=== PATIENT | male | born 1955 | race African-American/Black ===

== ENCOUNTER 2018-11-12 10:43 | Inpatient (IN) | payer MEDICARE ==
[2018-11-12] VITALS (7 sets, daily range): BP systolic 110–135; BP diastolic 62–76; BMI 26.4
[~2018-11-12] VITALS: Ht 185.4 cm; Wt 89.1 kg
--- NOTE | ~2018-11-12 | CN ---
PATIENT NAME:AMRITA SHAH MEDICAL RECORD: [id number] : 55 LOCATION:[facility].2126 ADMIT DATE: 11/12/18 ACCOUNT: [id number] CONSULTING PHYSICIAN: SANTY LANGLEY MD REFERRING PHYSICIAN: DALTON FLOOD MD DATE OF CONSULTATION: 11/13/2018 CONSULT REQUESTING PHYSICIAN: Dr. Dalton Flood. REASON FOR CONSULTATION: Bilateral lower lobe aspiration pneumonia, acute hypoxic respiratory failure. HISTORY OF PRESENT ILLNESS: Mr. Shah is a 63-year-old -[place] gentleman, who is a penitentiary resident. The patient was not feeling well and he vomited, full mouth, witnessed aspiration when he was throwing up. The patient was brought into the local hospital and found out the patient is hypoxic and he was started on Zosyn. Now, he is feeling a bit better and also the patient has hepatic encephalopathy, transferred over here for advanced care. He is seen by Dr. Caceres regarding his cirrhosis of liver and hepatic encephalopathy. REVIEW OF SYSTEMS: Is in history of present illness. PAST MEDICAL HISTORY: 1. Cirrhosis of liver. 2. Diabetes mellitus. 3. History of hepatitis. 4. Seizure disorder. 5. Gastroesophageal reflux disease. 6. Dementia. 7. Depression. ALLERGIES: No known drug allergy. MEDICATIONS: Babycare is reviewed. PERSONAL AND SOCIAL HISTORY: The patient is a nonsmoker. He was a heavy drinker in the past. FAMILY HISTORY: Noncontributory. PHYSICAL EXAMINATION: GENERAL: Now, the patient is lying comfortably in bed. He is not in acute distress. VITAL SIGNS: The blood pressure is 118/63, pulse is 84, respiration is 16, temperature is 98.1, and SPO2 is 94% on 3 liters nasal cannula. HEENT: Conjunctivae are pink. Sclerae nonicteric. NECK: Supple, no JVD. CHEST: There are bilateral crackles. No wheezing. HEART: Rhythm regular, normal sound, no murmur. ABDOMEN: Soft, bowel sounds present. No hepatosplenomegaly. RECTAL: Deferred. EXTREMITIES: No cyanosis, no clubbing, no pedal edema. CENTRAL NERVOUS SYSTEM: The patient is awake and alert, but he is confused. CONSULT REPORT [id number] AMRITA SHAH LABORATORY DATA: CBC: WBC 8.2, hemoglobin 10.9, hematocrit 33.7, the platelet count is 91. Chemistry: Sodium 145, potassium is 5, chloride 114, bicarbonate is 21.9, BUN is 27, creatinine 0.9. ABG: The pH is 7.31, pCO2 is 36.6, pO2 of 67, bicarb is 18.5. IMPRESSION: 1. Acute hypoxic respiratory failure. 2. Bilateral aspiration pneumonia. 3. Nausea, vomiting, the etiology not clear. 4. Hepatic encephalopathy. 5. Dementia. 6. Cirrhosis of liver. 7. Gastroesophageal reflux disease. 8. History of dysphagia. 9. History of seizure disorder. RECOMMENDATION: 1. Continue vancomycin and Zosyn. 2. Mucinex. 3. Supplemental oxygen. 4. Follow up labs and chest radiograph. GI has been consulted. Dr. Flood, thank you for involving me in the care of Mr. Shah. TRANSINT:[id number] Voice Confirmation ID: [id number] DOCUMENT ID: [id number] SANTY LANGLEY MD at 1507 CC: [id number] DICTATION DATE: 11/13/18 1348 ORNAMENT STITCHER: 11/13/18 1826 DIS IN 11/22/18 [id number] [place] [address]
--- NOTE | ~2018-11-12 | MORECARE ---
CASE MANAGEMENT DISCHARGE SUMMARY PATIENT: AMRITA MASSEY UNIT: [id number] ADM DATE: 11/12/18 AGE: 63 : 55 SEX: M ROOM/BED: D.2126 AUTHOR: ÁNGEL COLES PHYSICIAN: REFERRING PHYSICIAN: NANO CORBETT MD DATE OF SERVICE: 11/21/18 Discharge Plan Patient Name: AMRITA MASSEY Facility: [facility]:[place] : 1955 Planned Disposition: Anticipated Discharge Date: 11/21/18 Discharge Date: Expected LOS: 9 Initial Reviewer: [id number] Initial Review Date: 11/21/2018 Generated: 11/21/18 11:51 am Comments DCP- Discharge Planning Updated by [id number]: Deisi Rosa on 11/21/18 9:[address] Patient Name: AMRITA MASSEY Admission Status: ER Accout number: [id number] Admission Date: 11-12-2018 : 1955 Admission Diagnosis:PNEUMONITIS DUE TO INHALATION OF FOOD AND VOMIT Attending: NANO TORRES Current LOS: 9 Anticipated DC Date: 11-21-2018 Planned Disposition: Primary Insurance: MEDICARE A & B Discharge Planning Comments: CM SPOKE WITH NURSE ABOUT DISCHARGE PLANNING/NEEDS. SHE STATES SHE SPOKE TO THE DAUGHTER TODAY AND STATES SHE WOULD TRANSPORT HIM BACK TO THE NURSING FACILITY HE LIVES AT. CM WILL FOLLOW AND ASSIST NEEDED WITH DC PLANNING/NEEDS. IM SERVED, Equity Research Analyst: Deisi Rosa Appended by Deisi Rosa on 11/21/2018 10:51 JALOUSIE INSTALLER: RN WILL CALL REPORT TO THE NURSING FACILITY AND SEND APPROPRIATE PAPERWORK WITH HIM. Coverage Notice Reviewer: [id number] - Deisi Rosa Notice Issued Date-Time: 11/21/2018 10:42 Notice Type: IM Discharge Notice Notice Delivered To: Patient Relationship to Patient: Self Countersinker Name: Delivery Method: HAND - Hand Delivered Ana Days: Prior Verbal Notification: Recipient Understood Notice: Yes Recipient Signature: Med Rec Note Co-signed by Attending: Coverage Notice Comment: IM SERVED. PATIENT VERBALIZED UNDERSTANDING. WILL BE DC'D BACK TO NURSING FACILITY TODAY. Patient Name: AMRITA MASSEY Page [phone] at 1051 All edits/amendments must be made on the electronic document DICTATION DATE: 11/21/181050 COASTAL AND ESTUARY SPECIALIST: STEVEN 11/21/18 105 RPT#: [id number] DC DATE: STATUS: ADM IN [facility] [address] [place] [address] END OF REPORT
--- NOTE | ~2018-11-12 | MORECARE ---
CASE MANAGEMENT DISCHARGE SUMMARY PATIENT: AMRITA MASSEY UNIT: [id number] ADM DATE: 11/12/18 AGE: 63 : 55 SEX: M ROOM/BED: D.2126 AUTHOR: ÁNGEL COLES PHYSICIAN: REFERRING PHYSICIAN: NANO CORBETT MD DATE OF SERVICE: 11/21/18 Discharge Plan Patient Name: AMRITA MASSEY Facility: [facility]:[place] : 1955 Planned Disposition: Anticipated Discharge Date: 11/21/18 Discharge Date: Expected LOS: 9 Initial Reviewer: [id number] Initial Review Date: 11/21/2018 Generated: 11/21/18 4:15 pm Comments DCP- Discharge Planning Updated by [email or web address]: Deisi Rosa on 11/21/18 9:[address] Patient Name: AMRITA MASSEY Admission Status: ER Accout number: [id number] Admission Date: 11-12-2018 : 1955 Admission Diagnosis:PNEUMONITIS DUE TO INHALATION OF FOOD AND VOMIT Attending: NANO TORRES Current LOS: 9 Anticipated DC Date: 11-21-2018 Planned Disposition: Primary Insurance: MEDICARE A & B Discharge Planning Comments: CM SPOKE WITH NURSE ABOUT DISCHARGE PLANNING/NEEDS. SHE STATES SHE SPOKE TO THE DAUGHTER TODAY AND STATES SHE WOULD TRANSPORT HIM BACK TO THE NURSING FACILITY HE LIVES AT. CM WILL FOLLOW AND ASSIST NEEDED WITH DC PLANNING/NEEDS. IM SERVED, Tombstone Erector: Deisi Rosa Appended by Deisi Rosa on 11/21/2018 10:51 RETORT OPERATOR: RN WILL CALL REPORT TO THE NURSING FACILITY AND SEND APPROPRIATE PAPERWORK WITH HIM. Coverage Notice Reviewer: [id number] - Deisi Rosa Notice Issued Date-Time: 11/21/2018 10:42 Notice Type: IM Discharge Notice Notice Delivered To: Patient Relationship to Patient: Self [place] [employer] Dental Lab Technician Name: Delivery Method: HAND - Hand Delivered Ana Days: Prior Verbal Notification: Recipient Understood Notice: Yes Recipient Signature: Med Rec Note Co-signed by Attending: Coverage Notice Comment: IM SERVED. PATIENT VERBALIZED UNDERSTANDING. WILL BE DC'D BACK TO NURSING FACILITY TODAY. Last DP export: 11/21/18 9:51 Patient Name: AMRITA MASSEY Page [phone] at 1516 All edits/amendments must be made on the electronic document DICTATION DATE: 11/21/181514 AIR FORCE SENIOR OFFICER: STEVEN 11/21/181514 RPT#: [id number] DC DATE: STATUS: ADM IN [facility] [address] [place] [address] END OF REPORT
--- NOTE | ~2018-11-12 | MORECARE ---
CASE MANAGEMENT DISCHARGE SUMMARY PATIENT: AMRITA MASSEY UNIT: [id number] ADM DATE: 11/12/18 AGE: 63 : 55 SEX: M ROOM/BED: D.2126 AUTHOR: SHARYNDOC PHYSICIAN: REFERRING PHYSICIAN: NANO CORBETT MD DATE OF SERVICE: 11/22/18 Discharge Plan Patient Name: AMRITA MASSEY Facility: [facility]:[place] : 1955 Planned Disposition: Nursing Facility JENNIFER Cert Anticipated Discharge Date: 11/22/18 Discharge Date: 11/22/2018 Expected LOS: 10 Initial Reviewer: [id number] Initial Review Date: 11/21/2018 Generated: 11/22/18 12:14 pm Comments DCP- Discharge Planning Updated by [email or web address]: Milo Sneed on 11/22/18 10:[address] Patient Name: AMRITA MASSEY Encounter No: [id number] : 1955 Primary Insurance: MEDICARE A & B Anticipated DC Date: 11-22-2018 Planned Disposition: Nursing Facility JENNIFER Cert External Planned Provider: [facility], LONG TERM CARE MEDICAID BED DCP follow-up note: CM RECEIVED DISCHARGE ORDER, CALLED AND SPOKE TO NURSE ANDRADE OF [facility], , WHO REPORTS THEY WILL NEED NURSE REPORT AGAIN TODAY, CALLED TO [facility]. CM NOTIFIED BEDSIDE NURSE. CM FAXED DISCHARGE INFORMATION TO [facility], . CM SPOKE TO KARSON AT [facility], ADVISED OF DISCHARGE TODAY; WU INFORMED CM HE WILL NOTIFY [facility] BRANCH OF [facility] SO THAT RE ADMIT CAN TAKE PLACE AFTER PT'S ARRIVAL AT [facility] TODAY. PT TO TRANSPORT VIA AMBULANCE BACK, TO [facility]. Milo Sneed, CASE HARMEET DCP- Discharge Planning Updated by [id number]: Mare Tidwell on 11/21/18 2:[address] LATE ENTRY 6341- 1496 TIRE CENTER MANAGER TRANSFERED A TELEPHONE CALL FROM VINEET CROWE, PT'S DAUGHTER. SHE HAD BEEN NOTIFIED BY THE FACILITY THAT SHE WOULD HAVE TO SIGN THE PAPERWORK BEFORE THE PATIENT COULD BE TRANSFERED BACK TO FACILITY. SHE DID NOT UNDERSTAND WHAT PAPERWORK. NO DOCUMENTATION REGARDING FACILITY. NAME AND TELEPHONE NUMBER OBTAINED FROM THE DAUGHTER. THE DAUGHTER IS OUT OF TOWN. TC TO [facility] AT [phone]. SPOKE WITH DACIA. THE PATIENT'S FAMILY MUST SIGN ADMISSION PAPERWORK. CM REVIEWED THE PATIENT'S HARDCOPY CHART AND FOUND HOSPICE PAPERWORK NOT RELATED TO THIS PATIENT. AFTER SOME DISCUSSION FOUND THE PATIENT HAD BEEN ON HOSPICE CARE WITH [facility]. ON ADMISSION TO THE HOSPITAL THE HOSPICE HAD APPARENTLY BEEN REVOKED. THE PATIENT DOES NOT HAVE CAPACITY TO SIGN THE PAERWORK. CM REQUEST FOR THE ENTERPRISE APPLICATIONS MANAGER TO CALL CM. THE DTR CALLED AGAIN. CM ADVISED I WOULD CALL KAHLIL BACK WHEN I HAD CLARIFIED THE ISSUES. 1453 RECEIVED TELEPHONE CALL FROM BRANDAN, THE [place], AT HOME [facility]. SHE STATES THE PATIENT HAS DECLINED MENTALLY AND PHYSICALLY OVER THE LAST MONTH. HE WAS ON HOSPICE WITH [facility]. THE HOSPICE WAS REVOKED WHEN HE WAS ADMITTED TO THE FACILITY. THE FAMILY MUST COME BACK IN TO ADMIT PATIENT BACK INTO HOSPICE. SHE ALSO STATED THE PATIENT SHOULD HAVE AMBULANCE TRANSPORT. THE RIDE TO FACILITY IS OVER 2 HRS AND HE WOULD LIKELY NOT TOLERATE CAR TRANSPORT. 1458 TC TO [facility]. RECEIVED CB FROM KIRAN, THE SCARIFIER OPERATOR NURSE. SHE CONFIRMS [facility] IS THE HOSPICE PROVIDER. ADVISED HER OF DISCHARGE LIKELY ON THURSDAY. THEY WILL F/U WITH THE FAMILY. TC TO [facility] TO ADVISE OF PROCESS TO HAVE PATIENT READMITTED. CM EXPLAINED THE ISSUES. I PROVDED THE PHONE NUMBER TO CALL HOSPICE TO ARRANGE FOR COMPLETION OF THE PAPERWORK. SHE AGREED TO CALL TODAY. DCP- Discharge Planning Updated by [id number]: Deisi Rosa on 11/21/18 9:[address] Patient Name: AMRITA MASSEY Admission Status: ER Accout number: [id number] Admission Date: 11-12-2018 : 1955 Admission Diagnosis:PNEUMONITIS DUE TO INHALATION OF FOOD AND VOMIT Attending: NANO TORRES Current LOS: 9 Anticipated DC Date: 11-21-2018 Planned Disposition: Primary Insurance: MEDICARE A & B Discharge Planning Comments: CM SPOKE WITH NURSE ABOUT DISCHARGE PLANNING/NEEDS. SHE STATES SHE SPOKE TO THE DAUGHTER TODAY AND STATES SHE WOULD TRANSPORT HIM BACK TO THE NURSING FACILITY HE LIVES AT. CM WILL FOLLOW AND ASSIST NEEDED WITH DC PLANNING/NEEDS. IM SERVED, Account Review Specialist: Deisi Rosa Appended by Deisi Rosa on 11/21/2018 10:51 BED CONTROL SPECIALIST: RN WILL CALL REPORT TO THE NURSING FACILITY AND SEND APPROPRIATE PAPERWORK WITH HIM. Coverage Notice Reviewer: [id number] - Deisi Rosa Notice Issued Date-Time: 11/21/2018 10:42 Notice Type: IM Discharge Notice Notice Delivered To: Patient Relationship to Patient: Self Predictive Maintenance Technician Name: Delivery Method: HAND - Hand Delivered Ana Days: Prior Verbal Notification: Recipient Understood Notice: Yes Recipient Signature: Med Rec Note Co-signed by Attending: Coverage Notice Comment: IM SERVED. PATIENT VERBALIZED UNDERSTANDING. WILL BE DC'D BACK TO NURSING FACILITY TODAY. Last DP export: 11/22/18 10:07 Patient Name: AMRITA MASSEY Page 48882 at 1114 All edits/amendments must be made on the electronic document DICTATION DATE: 11/22/18 111 TELEVISION SCRIPT WRITER: STEVEN 11/22/18 1114 RPT#: [id number] DC DATE:11/22/18 STATUS: DIS IN [facility] [address] [place] [address] END OF REPORT
--- NOTE | ~2018-11-12 | MORECARE ---
CASE MANAGEMENT DISCHARGE SUMMARY PATIENT: AMRITA MASSEY UNIT: [id number] ADM DATE: 11/12/18 AGE: 63 : 55 SEX: M ROOM/BED: D.2126 AUTHOR: SHARYNDOC PHYSICIAN: REFERRING PHYSICIAN: NANO CORBETT MD DATE OF SERVICE: 11/21/18 Discharge Plan Patient Name: AMRITA MASSEY Facility: [facility]:[place] : 1955 Planned Disposition: Anticipated Discharge Date: 11/21/18 Discharge Date: Expected LOS: 9 Initial Reviewer: [id number] Initial Review Date: 11/21/2018 Generated: 11/21/18 4:48 pm Comments DCP- Discharge Planning Updated by [id number]: Mare Tidwell on 11/21/18 2:[address] LATE ENTRY 6459- 4865 SPORTS STATISTICIAN TRANSFERED A TELEPHONE CALL FROM VINEET CROWE, PT'S DAUGHTER. SHE HAD BEEN NOTIFIED BY THE FACILITY THAT SHE WOULD HAVE TO SIGN THE PAPERWORK BEFORE THE PATIENT COULD BE TRANSFERED BACK TO FACILITY. SHE DID NOT UNDERSTAND WHAT PAPERWORK. NO DOCUMENTATION REGARDING FACILITY. NAME AND TELEPHONE NUMBER OBTAINED FROM THE DAUGHTER. THE DAUGHTER IS OUT OF TOWN. TC TO [facility] AT [phone]. SPOKE WITH DACIA. THE PATIENT'S FAMILY MUST SIGN ADMISSION PAPERWORK. CM REVIEWED THE PATIENT'S HARDCOPY CHART AND FOUND HOSPICE PAPERWORK NOT RELATED TO THIS PATIENT. AFTER SOME DISCUSSION FOUND THE PATIENT HAD BEEN ON HOSPICE CARE WITH [facility]. ON ADMISSION TO THE HOSPITAL THE HOSPICE HAD APPARENTLY BEEN REVOKED. THE PATIENT DOES NOT HAVE CAPACITY TO SIGN THE PAERWORK. CM REQUEST FOR THE BRICK PAVING CHECKER TO CALL CM. THE DTR CALLED AGAIN. CM ADVISED I WOULD CALL KAHLIL BACK WHEN I HAD CLARIFIED THE ISSUES. 4006 RECEIVED TELEPHONE CALL FROM DELROY GIPSON, [facility]. SHE STATES THE PATIENT HAS DECLINED MENTALLY AND PHYSICALLY OVER THE LAST MONTH. HE WAS ON HOSPICE WITH [facility]. THE HOSPICE WAS REVOKED WHEN HE WAS ADMITTED TO THE FACILITY. THE FAMILY MUST COME BACK IN TO ADMIT PATIENT BACK INTO HOSPICE. SHE ALSO STATED THE PATIENT SHOULD HAVE AMBULANCE TRANSPORT. THE RIDE TO FACILITY IS OVER 2 HRS AND HE WOULD LIKELY NOT TOLERATE CAR TRANSPORT. 1823 TC TO [facility]. RECEIVED CB FROM KIRAN, THE HOT DOG VENDOR NURSE. SHE CONFIRMS [facility] IS THE HOSPICE PROVIDER. ADVISED HER OF DISCHARGE LIKELY ON THURSDAY. THEY WILL F/U WITH THE FAMILY. TC TO [facility] TO ADVISE OF PROCESS TO HAVE PATIENT READMITTED. CM EXPLAINED THE ISSUES. I PROVDED THE PHONE NUMBER TO CALL HOSPICE TO ARRANGE FOR COMPLETION OF THE PAPERWORK. SHE AGREED TO CALL TODAY. DCP- Discharge Planning Updated by [email or web address]: Deisi Rosa on 11/21/18 9:[address] Patient Name: AMRITA MASSEY Admission Status: ER Accout number: [id number] Admission Date: 11-12-2018 : 1955 Admission Diagnosis:PNEUMONITIS DUE TO INHALATION OF FOOD AND VOMIT Attending: NANO TORRES Current LOS: 9 Anticipated DC Date: 11-21-2018 Planned Disposition: Primary Insurance: MEDICARE A & B Discharge Planning Comments: CM SPOKE WITH NURSE ABOUT DISCHARGE PLANNING/NEEDS. SHE STATES SHE SPOKE TO THE DAUGHTER TODAY AND STATES SHE WOULD TRANSPORT HIM BACK TO THE NURSING FACILITY HE LIVES AT. CM WILL FOLLOW AND ASSIST NEEDED WITH DC PLANNING/NEEDS. IM SERVED, Clinical Auditor: Deisi Rosa Appended by Deisi Rosa on 11/21/2018 10:51 UNIVERSAL GRINDER TOOL: RN WILL CALL REPORT TO THE NURSING FACILITY AND SEND APPROPRIATE PAPERWORK WITH HIM. Coverage Notice Reviewer: [id number] - Deisi Rosa Notice Issued Date-Time: 11/21/2018 10:42 Notice Type: IM Discharge Notice Notice Delivered To: Patient Relationship to Patient: Self Dowel Maker Name: Delivery Method: HAND - Hand Delivered Ana Days: Prior Verbal Notification: Recipient Understood Notice: Yes Recipient Signature: Med Rec Note Co-signed by Attending: Coverage Notice Comment: IM SERVED. PATIENT VERBALIZED UNDERSTANDING. WILL BE DC'D BACK TO NURSING FACILITY TODAY. Last DP export: 11/21/18 2:15 Patient Name: AMRITA MASSEY Page [phone] at 1548 All edits/amendments must be made on the electronic document DICTATION DATE: 11/21/181546 CONCRETE PAVING SUPERVISOR: STEVEN 11/21/18 1547 RPT#: [id number] DC DATE: STATUS: ADM IN [facility] [address] [place] [address] END OF REPORT
--- NOTE | ~2018-11-12 | MORECARE ---
CASE MANAGEMENT DISCHARGE SUMMARY PATIENT: AMRITA MASSEY UNIT: [id number] ADM DATE: 11/12/18 AGE: 63 : 55 SEX: M ROOM/BED: D.2126 AUTHOR: SHARYNDOC PHYSICIAN: REFERRING PHYSICIAN: NANO CORBETT MD DATE OF SERVICE: 11/22/18 Discharge Plan Patient Name: AMRITA MASSEY [facility] : 1955 Planned Disposition: Nursing Facility JENNIFER Cert Anticipated Discharge Date: 11/22/18 Discharge Date: 11/22/2018 Expected LOS: 10 Initial Reviewer: [id number] Initial Review Date: 11/21/2018 Generated: 11/22/18 12:07 pm Comments DCP- Discharge Planning Updated by [email or web address]: Mare Tidwell on 11/21/18 2:[address] LATE ENTRY 1033- 8962 OFFICE CASHIER TRANSFERED A TELEPHONE CALL FROM VINEET AMRITA PT'S DAUGHTER. SHE HAD BEEN NOTIFIED BY THE FACILITY THAT SHE WOULD HAVE TO SIGN THE PAPERWORK BEFORE THE PATIENT COULD BE TRANSFERED BACK TO FACILITY. SHE DID NOT UNDERSTAND WHAT PAPERWORK. NO DOCUMENTATION REGARDING FACILITY. NAME AND TELEPHONE NUMBER OBTAINED FROM THE DAUGHTER. THE DAUGHTER IS OUT OF TOWN. [facility] [phone]. SPOKE WITH DACIA. THE PATIENT'S FAMILY MUST SIGN ADMISSION PAPERWORK. CM REVIEWED THE PATIENT'S HARDCOPY CHART AND FOUND HOSPICE PAPERWORK NOT RELATED TO THIS PATIENT. AFTER SOME DISCUSSION FOUND THE PATIENT HAD BEEN ON HOSPICE CARE WITH [facility]. ON ADMISSION TO THE HOSPITAL THE HOSPICE HAD APPARENTLY BEEN REVOKED. THE PATIENT DOES NOT HAVE CAPACITY TO SIGN THE PAERWORK. CM REQUEST FOR THE LINE SERVICER TO CALL CM. THE DTR CALLED AGAIN. CM ADVISED I WOULD CALL KAHLIL BACK WHEN I HAD CLARIFIED THE ISSUES. 1453 RECEIVED TELEPHONE CALL FROM DELROY GIPSON, [facility]. SHE STATES THE PATIENT HAS DECLINED MENTALLY AND PHYSICALLY OVER THE LAST MONTH. HE WAS ON [facility]PICE WITH [facility]. THE HOSPICE WAS REVOKED WHEN HE WAS ADMITTED TO THE FACILITY. THE FAMILY MUST COME BACK IN TO ADMIT PATIENT BACK INTO HOSPICE. SHE ALSO STATED THE PATIENT SHOULD HAVE AMBULANCE TRANSPORT. THE RIDE TO FACILITY IS OVER 2 HRS AND HE WOULD LIKELY NOT TOLERATE CAR TRANSPORT. 1458 TC TO [facility]. RECEIVED CB FROM KIRAN, THE INSPECTOR CANVAS PRODUCTS NURSE. SHE CONFIRMS [facility] IS THE HOSPICE PROVIDER. ADVISED HER OF DISCHARGE LIKELY ON THURSDAY. THEY WILL F/U WITH THE FAMILY. TC TO [facility] TO ADVISE OF PROCESS TO HAVE PATIENT READMITTED. CM EXPLAINED THE ISSUES. I PROVDED THE PHONE NUMBER TO CALL HOSPICE TO ARRANGE FOR COMPLETION OF THE PAPERWORK. SHE AGREED TO CALL TODAY. DCP- Discharge Planning Updated by [email or web address]: Deisi Rosa on 11/21/18 9:[address] Patient Name: AMRITA MASSEY Admission Status: ER Accout number: [id number] Admission Date: 11-12-2018 : 1955 Admission Diagnosis:PNEUMONITIS DUE TO INHALATION OF FOOD AND VOMIT Attending: NANO TORRES Current LOS: 9 Anticipated DC Date: 11-21-2018 Planned Disposition: Primary Insurance: MEDICARE A & B Discharge Planning Comments: CM SPOKE WITH NURSE ABOUT DISCHARGE PLANNING/NEEDS. SHE STATES SHE SPOKE TO THE DAUGHTER TODAY AND STATES SHE WOULD TRANSPORT HIM BACK TO THE NURSING FACILITY HE LIVES AT. CM WILL FOLLOW AND ASSIST NEEDED WITH DC PLANNING/NEEDS. IM SERVED, Cable Systems Installer: Deisi Rosa Appended by Deisi Rosa on 11/21/2018 10:51 CONTRACTOR FIELD HAULING: RN WILL CALL REPORT TO THE NURSING FACILITY AND SEND APPROPRIATE PAPERWORK WITH HIM. External Providers External Provider: OTHER-OTHER Next Contact Date: 11/22/2018 Service Request Date: Service Type: Resolution: Reviewer: Comments: Coverage Notice Reviewer: [id number] - Deisi Rosa Notice Issued Date-Time: 11/21/2018 10:42 Notice Type: IM Discharge Notice Notice Delivered To: Patient Relationship to Patient: Self Rehab Therapist Name: Delivery Method: HAND - Hand Delivered Ana Days: Prior Verbal Notification: Recipient Understood Notice: Yes Recipient Signature: Med Rec Note Co-signed by Attending: Coverage Notice Comment: IM SERVED. PATIENT VERBALIZED UNDERSTANDING. WILL BE DC'D BACK TO NURSING FACILITY TODAY. Last DP export: 11/21/18 2:48 Patient Name: AMRITA MASSEY Page [phone] at 1107 All edits/amendments must be made on the electronic document DICTATION DATE: 11/22/181105 LEAN PROCESS DEPLOYMENT CONSULTANT: DM 11/22/18 110 RPT#: [id number] DC DATE:11/22/18 STATUS: DIS IN [facility] [address] [facility] [place] [address] END OF REPORT
[2018-11-12] MEDS ORDERED: KLONOPIN0.5 MG PO (10:50)
[2018-11-12] MEDS ORDERED: PROBIOTIC1 EAC1 PO (10:51)
[2018-11-12] MEDS ORDERED: EFFEXOR37.5 MG PO (10:52)
[2018-11-12] MEDS ORDERED: DEPAKOTE SPRIN125 MG PO (10:52)
[2018-11-12] MEDS ORDERED: GLUCAGEN1 MG/VIAL SC (10:54)
[2018-11-12] MEDS ORDERED: CHRONULAC30 ML PO (10:54)
[2018-11-12] MEDS ORDERED: INSTA-GLUCOSE31 GM PO (10:54)
[2018-11-12] MEDS ORDERED: LEVEMIR IN100 UNITS/ SC (10:54)
[2018-11-12] MEDS ORDERED: MAG-OX 400 MG400 MG PO (10:55)
[2018-11-12] MEDS ORDERED: MELATONIN 3 MG1 TAB PO (10:55)
[2018-11-12] MEDS ORDERED: LISINOPRIL10 MG PO (10:55)
[2018-11-12] MEDS ORDERED: MAALOX ADVANCE355 ML PO (10:55)
[2018-11-12] MEDS ORDERED: NEURONTIN 300300 MG PO (10:56)
[2018-11-12] MEDS ORDERED: NORVASC5 MG PO (10:56)
[2018-11-12] MEDS ORDERED: KLOR-CON 1010 MEQ PO (10:56)
[2018-11-12] MEDS ORDERED: ZANTAC300 MG PO (10:57)
[2018-11-12] MEDS ORDERED: PREMARIN0.625 MG PO (10:57)
[2018-11-12] MEDS ORDERED: REMERON15 MG PO (10:57)
[2018-11-12] MEDS ORDERED: RISPERDAL1 MG PO (10:58)
[2018-11-12] MEDS ORDERED: CIMETIDINE200 MG PO (10:59)
[2018-11-12] MEDS ORDERED: SCOT-TUSSI10 MG/5 ML PO (10:59)
[2018-11-12] MEDS ORDERED: ULTRAM50 MG PO (10:59)
[2018-11-12] MEDS ORDERED: ACETAMINOPHEN325 MG PO (11:00)
[2018-11-12] MEDS ORDERED: ZOFRAN4 MG PO (11:00)
[2018-11-12 15:23] LABS: BASOPHILS 0.1 % (0-2); EOSINOPHILS 0 % (0-7); HEMATOCRIT 40.6 % (42.0-54.0); IMMATURE GRANULOCYTES 0.4 % (0-5); LYMPHOCYTES 12.5 % (15-50); MCH 30.3 pg (26.0-34.0); MCV 94.6 fL (80.0-100.0); MEAN PLATELET VOLUME 10.3 fL (7.4-10.4); MONOCYTES 14.8 % (2-11); NEUTROPHILS 72.2 % (40-80); PLATELET COUNT 105 10x3/uL (130-400); RBC 4.29 10x6/uL (4.20-6.10); RDW 16.1 % (11.5-14.5); WBC 8.5 10x3/uL (4.8-10.8)
[2018-11-12 16:49] LABS: ALBUMIN 1.9 g/dL (3.4-5.0); ANION GAP 16.4 mmol/L (8-16); BILIRUBIN - TOTAL 0.56 mg/dL (0.2-1.3); CALCIUM 8.6 mg/dL (8.5-10.1); CARBON DIOXIDE 20.1 mmol/L (21.0-32.0); CREATININE - SERUM 1.5 mg/dL (0.6-1.3); POTASSIUM - SERUM 5.5 mmol/L (3.5-5.1); PROTEIN - SERUM 9.2 g/dL (6.4-8.2)
[2018-11-13] VITALS: BP 122/69
[2018-11-13 04:00] VITALS: BP 138/80
[2018-11-13 05:45] LABS: APTT 30.4 SECONDS (22.8-39.4); INR 1.77 (0.85-1.17); PROTIME 19.9 SECONDS (11.6-15.0)
[2018-11-13 05:46] LABS: BASOPHILS 0.1 % (0-2); EOSINOPHILS 0.2 % (0-7); HEMATOCRIT 33.7 % (42.0-54.0); HEMOGLOBIN 10.9 g/dL (13.5-17.5); IMMATURE GRANULOCYTES 0.2 % (0-5); LYMPHOCYTES 15.8 % (15-50); MCH 29.5 pg (26.0-34.0); MCHC 32.3 g/dL (31.0-37.0); MEAN PLATELET VOLUME 10.3 fL (7.4-10.4); MONOCYTES 12.9 % (2-11); NEUTROPHILS 70.8 % (40-80); PLATELET COUNT 91 10x3/uL (130-400); RBC 3.69 10x6/uL (4.20-6.10); RDW 15.3 % (11.5-14.5); WBC 8.2 10x3/uL (4.8-10.8)
[2018-11-13 05:49] LABS: MCV 91.3 fL (80.0-100.0)
[2018-11-13 05:55] LABS: ALBUMIN 1.8 g/dL (3.4-5.0); ALKALINE PHOSPHATASE 65 U/L (46-116); ALT (SGPT) 26 U/L (10-68); AMYLASE - SERUM 65 U/L (25-115); BILIRUBIN - TOTAL 0.72 mg/dL (0.2-1.3); CALC OSMOLALITY 295 mosm/kg (275-300); CALCIUM 7.9 mg/dL (8.5-10.1); CARBON DIOXIDE 21.9 mmol/L (21.0-32.0); CHLORIDE - SERUM 114 mmol/L (98-107); CHOL - HDL RATIO 2.2 ratio (2.3-4.9); CHOLESTEROL, TOTAL 75 mg/dL (0-200); CREATININE - SERUM 0.9 mg/dL (0.6-1.3); GLUCOSE 132 mg/dL (74-106); HDL CHOLESTEROL 34 mg/dL (32-96); LDL CHOLESTEROL 33 mg/dL (0-100); LIPASE 56 U/L (73-393); PRE-ALBUMIN 10.1 mg/dL (18.0-35.7); PROTEIN - SERUM 8.2 g/dL (6.4-8.2); SODIUM 145 mmol/L (136-145); TRIGLYCERIDE 43 mg/dL (30-200); UREA NITROGEN 27 mg/dL (7-18); eGFR NON AFRICAN AMERICAN > 90 mL/min (90-120)
[2018-11-13 08:46] VITALS: BP 140/86
[2018-11-13 17:52] VITALS: BP 141/87
[2018-11-13 20:30] VITALS: BP 184/82
[2018-11-14 00:30] VITALS: BP 157/71
[2018-11-14 04:30] VITALS: BP 145/69
[2018-11-14 04:38] LABS: BASOPHILS 0.1 % (0-2); EOSINOPHILS 0.6 % (0-7); HEMATOCRIT 30.6 % (42.0-54.0); HEMOGLOBIN 10.2 g/dL (13.5-17.5); IMMATURE GRANULOCYTES 0.4 % (0-5); LYMPHOCYTES 27.3 % (15-50); MCHC 33.3 g/dL (31.0-37.0); MEAN PLATELET VOLUME 10.1 fL (7.4-10.4); MONOCYTES 11.4 % (2-11); NEUTROPHILS 60.2 % (40-80); PLATELET COUNT 78 10x3/uL (130-400); RDW 15.3 % (11.5-14.5); WBC 8.6 10x3/uL (4.8-10.8)
[2018-11-14 04:49] LABS: INR 1.7 (0.85-1.17); PROTIME 19.4 SECONDS (11.6-15.0)
[2018-11-14 04:59] LABS: ALBUMIN 1.6 g/dL (3.4-5.0); ALKALINE PHOSPHATASE 64 U/L (46-116); ALT (SGPT) 24 U/L (10-68); BILIRUBIN - TOTAL 0.66 mg/dL (0.2-1.3); CALC OSMOLALITY 295 mosm/kg (275-300); CALCIUM 7.9 mg/dL (8.5-10.1); CARBON DIOXIDE 22.9 mmol/L (21.0-32.0); CHLORIDE - SERUM 114 mmol/L (98-107); GLUCOSE 160 mg/dL (74-106); POTASSIUM - SERUM 3.3 mmol/L (3.5-5.1); SODIUM 147 mmol/L (136-145); UREA NITROGEN 15 mg/dL (7-18); eGFR NON AFRICAN AMERICAN 80 mL/min (90-120)
[2018-11-14 09:32] VITALS: BP 146/77
[2018-11-14 13:17] VITALS: BP 116/71
[2018-11-14 17:22] VITALS: BP 130/64
[2018-11-14 20:30] VITALS: BP 151/79
[2018-11-15 00:30] VITALS: BP 149/74
[2018-11-15 04:30] VITALS: BP 150/87
[2018-11-15 07:08] LABS: BASOPHILS 0.1 % (0-2); EOSINOPHILS 1.8 % (0-7); HEMATOCRIT 30.1 % (42.0-54.0); HEMOGLOBIN 10.1 g/dL (13.5-17.5); IMMATURE GRANULOCYTES 0.2 % (0-5); LYMPHOCYTES 23.9 % (15-50); MCHC 33.6 g/dL (31.0-37.0); MCV 89.3 fL (80.0-100.0); MEAN PLATELET VOLUME 9.5 fL (7.4-10.4); MONOCYTES 9.6 % (2-11); NEUTROPHILS 64.4 % (40-80); PLATELET COUNT 69 10x3/uL (130-400); RBC 3.37 10x6/uL (4.20-6.10); WBC 8.6 10x3/uL (4.8-10.8)
[2018-11-15 07:22] LABS: ALBUMIN 1.6 g/dL (3.4-5.0); ALKALINE PHOSPHATASE 62 U/L (46-116); ALT (SGPT) 18 U/L (10-68); BILIRUBIN - TOTAL 0.69 mg/dL (0.2-1.3); CALC OSMOLALITY 297 mosm/kg (275-300); CALCIUM 7.7 mg/dL (8.5-10.1); CARBON DIOXIDE 23.9 mmol/L (21.0-32.0); CHLORIDE - SERUM 114 mmol/L (98-107); CREATININE - SERUM 0.9 mg/dL (0.6-1.3); GLUCOSE 149 mg/dL (74-106); PROTEIN - SERUM 7.5 g/dL (6.4-8.2); SODIUM 148 mmol/L (136-145); UREA NITROGEN 14 mg/dL (7-18); eGFR NON AFRICAN AMERICAN > 90 mL/min (90-120)
[2018-11-15 07:25] LABS: POTASSIUM - SERUM 2.7 mmol/L (3.5-5.1)
[2018-11-15 07:27] LABS: INR 1.76 (0.85-1.17); PROTIME 19.9 SECONDS (11.6-15.0)
[2018-11-15 07:49] LABS: PLATELET ESTIMATE DECREASED
[2018-11-15 08:33] VITALS: BP 146/69
[2018-11-15 12:03] VITALS: BP 134/68
[2018-11-15 16:16] VITALS: BP 131/65
[2018-11-15 16:52] LABS: VANCOMYCIN - TROUGH 7.5 ug/mL (10.0-20.0)
[2018-11-15 16:55] LABS: POTASSIUM - SERUM 2.9 mmol/L (3.5-5.1)
[2018-11-15 17:10] LABS: HELICOBACTER PYLORI IGM AB <9.0 units (0.0-8.9)
[2018-11-15 20:00] VITALS: BP 134/71
[2018-11-15 23:34] LABS: APPEARANCE SL CLDY (CLEAR); BILIRUBIN NEGATIVE (NEGATIVE); COLOR YELLOW (YELLOW); GLUCOSE 50 mg/dL (NEGATIVE); KETONE NEGATIVE (NEGATIVE); NITRITE NEGATIVE (NEGATIVE); PROTEIN NEGATIVE (NEGATIVE); SPECIFIC GRAVITY 1.005 (1.005-1.020); UROBILINOGEN NORMAL (NORMAL)
[2018-11-15 23:36] LABS: BACTERIA FEW /hpf (NONE SEEN); EPITHELIAL CELLS 0-5 /hpf (0-5)
[2018-11-16] VITALS: BP 129/74
[2018-11-16 04:00] VITALS: BP 128/70
[2018-11-16 05:33] LABS: BASOPHILS 0.3 % (0-2); EOSINOPHILS 2.4 % (0-7); HEMATOCRIT 32.2 % (42.0-54.0); HEMOGLOBIN 10.9 g/dL (13.5-17.5); IMMATURE GRANULOCYTES 0.5 % (0-5); LYMPHOCYTES 29.3 % (15-50); MCH 29.8 pg (26.0-34.0); MCHC 33.9 g/dL (31.0-37.0); MEAN PLATELET VOLUME 10.1 fL (7.4-10.4); MONOCYTES 14.3 % (2-11); NEUTROPHILS 53.2 % (40-80); RBC 3.66 10x6/uL (4.20-6.10); RDW 14.6 % (11.5-14.5)
[2018-11-16 05:45] LABS: PLATELET COUNT 96 10x3/uL (130-400); WBC 5.9 10x3/uL (4.8-10.8)
[2018-11-16 05:55] LABS: ALBUMIN 1.7 g/dL (3.4-5.0); ALKALINE PHOSPHATASE 69 U/L (46-116); ALT (SGPT) 22 U/L (10-68); BILIRUBIN - TOTAL 0.87 mg/dL (0.2-1.3); CALCIUM 7.7 mg/dL (8.5-10.1); CARBON DIOXIDE 23.7 mmol/L (21.0-32.0); CHLORIDE - SERUM 106 mmol/L (98-107); CREATININE - SERUM 0.8 mg/dL (0.6-1.3); PROTEIN - SERUM 8.1 g/dL (6.4-8.2); SODIUM 141 mmol/L (136-145); UREA NITROGEN 12 mg/dL (7-18); eGFR NON AFRICAN AMERICAN > 90 mL/min (90-120)
[2018-11-16 05:57] LABS: CALC OSMOLALITY 280 mosm/kg (275-300); GLUCOSE 101 mg/dL (74-106)
[2018-11-16 05:58] LABS: POTASSIUM - SERUM 2.7 mmol/L (3.5-5.1)
[2018-11-16 07:28] LABS: ALPHA FETOPROTEIN -(TUMOR MRK) 3.2 ng/mL (0.0-8.3)
[2018-11-16 08:30] VITALS: BP 116/62
[2018-11-16 12:08] VITALS: BP 124/62
[2018-11-16 13:51] VITALS: Ht 185.4 cm; Wt 89.1 kg
[2018-11-16 15:23] LABS: HEPATITIS C ANTIBODY >11.0 S/CO RAT (0.0-0.9)
[2018-11-16 16:08] VITALS: BP 135/86
[2018-11-16 21:02] VITALS: BP 144/75
[2018-11-17 01:14] VITALS: BP 93/60
[2018-11-17 05:54] VITALS: BP 120/65
[2018-11-17 06:54] LABS: ALBUMIN 1.7 g/dL (3.4-5.0); ALKALINE PHOSPHATASE 62 U/L (46-116); ALT (SGPT) 19 U/L (10-68); BILIRUBIN - TOTAL 0.86 mg/dL (0.2-1.3); CALC OSMOLALITY 283 mosm/kg (275-300); CALCIUM 7.8 mg/dL (8.5-10.1); CARBON DIOXIDE 22.9 mmol/L (21.0-32.0); CHLORIDE - SERUM 109 mmol/L (98-107); CREATININE - SERUM 0.8 mg/dL (0.6-1.3); GLUCOSE 100 mg/dL (74-106); POTASSIUM - SERUM 3.7 mmol/L (3.5-5.1); PRO BNP 498 pg/mL (0-125); PROTEIN - SERUM 7.7 g/dL (6.4-8.2); SODIUM 142 mmol/L (136-145); UREA NITROGEN 14 mg/dL (7-18); eGFR NON AFRICAN AMERICAN > 90 mL/min (90-120)
[2018-11-17 07:15] LABS: BASOPHILS 0.4 % (0-2); EOSINOPHILS 2.4 % (0-7); HEMATOCRIT 29.5 % (42.0-54.0); HEMOGLOBIN 10.1 g/dL (13.5-17.5); IMMATURE GRANULOCYTES 0.6 % (0-5); LYMPHOCYTES 38.7 % (15-50); MCH 30.2 pg (26.0-34.0); MCHC 34.2 g/dL (31.0-37.0); MCV 88.3 fL (80.0-100.0); MEAN PLATELET VOLUME 9.8 fL (7.4-10.4); MONOCYTES 17.2 % (2-11); NEUTROPHILS 40.7 % (40-80); PLATELET COUNT 100 10x3/uL (130-400); RBC 3.34 10x6/uL (4.20-6.10); RDW 14.9 % (11.5-14.5); WBC 5.1 10x3/uL (4.8-10.8)
[2018-11-17 08:25] VITALS: BP 135/61
[2018-11-17 12:15] VITALS: BP 133/60
[2018-11-17 16:15] VITALS: BP 111/70
[2018-11-17 20:18] VITALS: BP 107/58
[2018-11-18 00:29] VITALS: BP 114/63
[2018-11-18 04:00] VITALS: BP 129/71
[2018-11-18 05:11] LABS: BASOPHILS 0.4 % (0-2); EOSINOPHILS 3.4 % (0-7); HEMATOCRIT 30.4 % (42.0-54.0); HEMOGLOBIN 10.3 g/dL (13.5-17.5); IMMATURE GRANULOCYTES 0.4 % (0-5); LYMPHOCYTES 34.3 % (15-50); MCH 30.1 pg (26.0-34.0); MCHC 33.9 g/dL (31.0-37.0); MCV 88.9 fL (80.0-100.0); MEAN PLATELET VOLUME 9.4 fL (7.4-10.4); MONOCYTES 17.1 % (2-11); NEUTROPHILS 44.4 % (40-80); PLATELET COUNT 105 10x3/uL (130-400); RBC 3.42 10x6/uL (4.20-6.10); RDW 15.2 % (11.5-14.5); WBC 5.4 10x3/uL (4.8-10.8)
[2018-11-18 05:36] LABS: ALBUMIN 1.7 g/dL (3.4-5.0); ALKALINE PHOSPHATASE 60 U/L (46-116); ALT (SGPT) 20 U/L (10-68); BILIRUBIN - TOTAL 0.68 mg/dL (0.2-1.3); CALC OSMOLALITY 290 mosm/kg (275-300); CALCIUM 8.2 mg/dL (8.5-10.1); CARBON DIOXIDE 21.5 mmol/L (21.0-32.0); CHLORIDE - SERUM 111 mmol/L (98-107); GLUCOSE 108 mg/dL (74-106); PROTEIN - SERUM 8.3 g/dL (6.4-8.2); SODIUM 145 mmol/L (136-145); UREA NITROGEN 15 mg/dL (7-18); eGFR NON AFRICAN AMERICAN 80 mL/min (90-120)
[2018-11-18 05:40] LABS: POTASSIUM - SERUM 3.1 mmol/L (3.5-5.1)
[2018-11-18 07:37] VITALS: BP 119/59
[2018-11-18 12:14] LABS: ANA REFLEX - DIRECT Negative (Negative)
[2018-11-18 20:45] VITALS: BP 97/56
[2018-11-19 00:17] VITALS: BP 114/58
[2018-11-19 05:04] VITALS: BP 104/73
[2018-11-19 06:31] LABS: BASOPHILS 0.4 % (0-2); EOSINOPHILS 3.6 % (0-7); HEMATOCRIT 29.9 % (42.0-54.0); HEMOGLOBIN 10.1 g/dL (13.5-17.5); IMMATURE GRANULOCYTES 0.2 % (0-5); LYMPHOCYTES 41.1 % (15-50); MCH 29.9 pg (26.0-34.0); MCHC 33.8 g/dL (31.0-37.0); MCV 88.5 fL (80.0-100.0); MEAN PLATELET VOLUME 9.4 fL (7.4-10.4); MONOCYTES 11.6 % (2-11); NEUTROPHILS 43.1 % (40-80); PLATELET COUNT 107 10x3/uL (130-400); RBC 3.38 10x6/uL (4.20-6.10); RDW 15.4 % (11.5-14.5); WBC 5.5 10x3/uL (4.8-10.8)
[2018-11-19 06:44] LABS: ALBUMIN 1.6 g/dL (3.4-5.0); ALKALINE PHOSPHATASE 52 U/L (46-116); ALT (SGPT) 17 U/L (10-68); BILIRUBIN - TOTAL 0.55 mg/dL (0.2-1.3); CALC OSMOLALITY 276 mosm/kg (275-300); CALCIUM 7.6 mg/dL (8.5-10.1); CARBON DIOXIDE 22.1 mmol/L (21.0-32.0); CHLORIDE - SERUM 108 mmol/L (98-107); CREATININE - SERUM 0.8 mg/dL (0.6-1.3); GLUCOSE 94 mg/dL (74-106); POTASSIUM - SERUM 3.1 mmol/L (3.5-5.1); PROTEIN - SERUM 7.3 g/dL (6.4-8.2); SODIUM 139 mmol/L (136-145); UREA NITROGEN 11 mg/dL (7-18); eGFR NON AFRICAN AMERICAN > 90 mL/min (90-120)
[2018-11-19 09:10] VITALS: BP 101/49
[2018-11-19 11:17] LABS: ANA REFLEX - DIRECT Negative (Negative)
[2018-11-19 12:14] VITALS: BP 103/55
[2018-11-19 16:14] LABS: ANCA - ANTIMYELOPEROXIDASE <9.0 U/mL (0.0-9.0); ANCA - ANTIPROTEINASE 3 <3.5 U/mL (0.0-3.5); ANCA - ATYPICAL <1:20 titer (Neg:<1:20); ANCA - CYTOPLASMIC <1:20 titer (Neg:<1:20); ANCA - PERINUCLEAR <1:20 titer (Neg:<1:20)
[2018-11-19 20:00] VITALS: BP 104/51
[2018-11-20] VITALS: BP 111/63
[2018-11-20 04:00] VITALS: BP 129/60
[2018-11-20 05:30] LABS: BASOPHILS 0.2 % (0-2); EOSINOPHILS 2.2 % (0-7); HEMATOCRIT 29.5 % (42.0-54.0); HEMOGLOBIN 10.1 g/dL (13.5-17.5); IMMATURE GRANULOCYTES 0.2 % (0-5); LYMPHOCYTES 36.3 % (15-50); MCH 29.8 pg (26.0-34.0); MCHC 34.2 g/dL (31.0-37.0); MEAN PLATELET VOLUME 9.2 fL (7.4-10.4); MONOCYTES 11.7 % (2-11); NEUTROPHILS 49.4 % (40-80); PLATELET COUNT 112 10x3/uL (130-400); RBC 3.39 10x6/uL (4.20-6.10); RDW 15.3 % (11.5-14.5)
[2018-11-20 05:33] LABS: WBC 4.1 10x3/uL (4.8-10.8)
[2018-11-20 06:10] LABS: ALBUMIN 1.6 g/dL (3.4-5.0); ALKALINE PHOSPHATASE 59 U/L (46-116); ALT (SGPT) 17 U/L (10-68); BILIRUBIN - TOTAL 0.59 mg/dL (0.2-1.3); CALC OSMOLALITY 284 mosm/kg (275-300); CALCIUM 8.1 mg/dL (8.5-10.1); CHLORIDE - SERUM 110 mmol/L (98-107); CREATININE - SERUM 0.8 mg/dL (0.6-1.3); GLUCOSE 113 mg/dL (74-106); POTASSIUM - SERUM 3.3 mmol/L (3.5-5.1); PROTEIN - SERUM 7.9 g/dL (6.4-8.2); SODIUM 144 mmol/L (136-145); eGFR NON AFRICAN AMERICAN > 90 mL/min (90-120)
[2018-11-20 06:12] LABS: UREA NITROGEN 5 mg/dL (7-18)
[2018-11-20 08:07] VITALS: BP 136/78
[2018-11-20 11:32] VITALS: BP 151/79
[2018-11-20 15:39] VITALS: BP 108/60
[2018-11-20 17:08] LABS: ANGIOTENSIN CONVERTING ENZYME 21 U/L (14-82)
[2018-11-20 20:30] VITALS: BP 104/54
[2018-11-21 00:30] VITALS: BP 110/64
[2018-11-21 04:30] VITALS: BP 100/58
[2018-11-21 05:05] LABS: ALBUMIN 1.5 g/dL (3.4-5.0); BILIRUBIN - TOTAL 0.5 mg/dL (0.2-1.3); CALCIUM 7.9 mg/dL (8.5-10.1); CARBON DIOXIDE 24.2 mmol/L (21.0-32.0); CREATININE - SERUM 1.1 mg/dL (0.6-1.3); POTASSIUM - SERUM 3.2 mmol/L (3.5-5.1); PROTEIN - SERUM 7.7 g/dL (6.4-8.2)
[2018-11-21 08:16] VITALS: BP 146/68
[2018-11-21] MEDS ORDERED: LEVAQUIN750 MG PO (08:40)
[2018-11-21] MEDS ORDERED: XIFAXAN550 MG PO (08:40)
[2018-11-21] MEDS ORDERED: CHRONULAC30 ML PO (08:41)
[2018-11-21] MEDS ORDERED: LINZESS145 MCG PO (08:41)
[2018-11-21 20:30] VITALS: BP 110/62
[2018-11-22 00:30] VITALS: BP 109/63
[2018-11-22 05:49] LABS: BASOPHILS 0.2 % (0-2); EOSINOPHILS 2.9 % (0-7); HEMATOCRIT 29.6 % (42.0-54.0); HEMOGLOBIN 9.9 g/dL (13.5-17.5); IMMATURE GRANULOCYTES 0.2 % (0-5); LYMPHOCYTES 37.9 % (15-50); MCH 29.4 pg (26.0-34.0); MCHC 33.4 g/dL (31.0-37.0); MCV 87.8 fL (80.0-100.0); MEAN PLATELET VOLUME 8.5 fL (7.4-10.4); MONOCYTES 9.8 % (2-11); PLATELET COUNT 113 10x3/uL (130-400); RBC 3.37 10x6/uL (4.20-6.10); RDW 15.6 % (11.5-14.5); WBC 4.5 10x3/uL (4.8-10.8)
[2018-11-22 06:13] LABS: ALBUMIN 1.7 g/dL (3.4-5.0); ALKALINE PHOSPHATASE 65 U/L (46-116); ALT (SGPT) 19 U/L (10-68); BILIRUBIN - TOTAL 0.46 mg/dL (0.2-1.3); CALCIUM 8.4 mg/dL (8.5-10.1); CARBON DIOXIDE 24.3 mmol/L (21.0-32.0); CHLORIDE - SERUM 106 mmol/L (98-107); POTASSIUM - SERUM 3.4 mmol/L (3.5-5.1); PROTEIN - SERUM 7.9 g/dL (6.4-8.2); SODIUM 138 mmol/L (136-145); eGFR NON AFRICAN AMERICAN 80 mL/min (90-120)
[2018-11-22 06:16] LABS: CALC OSMOLALITY 276 mosm/kg (275-300); GLUCOSE 155 mg/dL (74-106); UREA NITROGEN 7 mg/dL (7-18)
[2018-11-22 07:47] VITALS: BP 85/53
[2018-11-22 15:13] LABS: FUNGAL - ASP FLAVUS Negative (Neg:<1:1); FUNGAL - ASP NIGER Negative (Neg:<1:1); FUNGAL - ASPER FUMIGATUS Negative (Neg:<1:1)
== END 2018-11-22 11:04 | DRG 177 ==
LOC: D.ER 10:43 → D.EDHOLD 15:02 → D.M2 15:02
PROVIDERS: Family Medicine; Family Medicine Adult Medicine; Internal Medicine Gastroenterology; Internal Medicine Nephrology; Internal Medicine Pulmonary Disease
DX: J69.0 Pneumonitis due to inhalation of food and vomit (principal); J96.01 Acute respiratory failure with hypoxia; E43 Unspecified severe protein-calorie malnutrition; E87.1 Hypo-osmolality and hyponatremia; B19.20 Unspecified viral hepatitis C without hepatic coma; K74.60 Unspecified cirrhosis of liver; E11.9 Type 2 diabetes mellitus without complications; G40.909 Epilepsy, unspecified, not intractable, without status epilepticus; K21.9 Gastro-esophageal reflux disease without esophagitis; F32.9 Major depressive disorder, single episode, unspecified; D50.9 Iron deficiency anemia, unspecified; E87.6 Hypokalemia; K72.90 Hepatic failure, unspecified without coma; Z68.26 Body mass index [BMI] 26.0-26.9, adult